=== PATIENT | male | born 1985 | race American Indian/Alaskan Native ===

== ENCOUNTER 2020-01-02 23:23 | Emergency (ER) | payer BC ==
--- NOTE | 2020-01-03 02:07 | XRay Report ---
CHEST 2 VIEWS INDICATION / CLINICAL INFORMATION: cough. FINDINGS: SUPPORT DEVICES: None. HEART / MEDIASTINUM: No significant abnormality. LUNGS / PLEURA: No significant pulmonary or pleural abnormality. No pneumothorax. ADDITIONAL FINDINGS: No significant additional findings. IMPRESSION: 1. No acute findings. Signer Name: Jaxson Cabrera MD Signed: 01/03/2020 2:03 AM Workstation Name: [id number]
[2020-01-03] MEDS ORDERED: ACETAMINOPHEN 500 MG TAB PO ONE (02:20)
[2020-01-03] MEDS ORDERED: predniSONE 20 MG TAB PO ONE (02:20)
[2020-01-03] MEDS ORDERED: IPRATROPIUM/ALBUTEROL SULFATE 3 ML AMPUL.NEB IH ONE (02:20)
--- NOTE | 2020-01-03 03:09 | Emergency Department Report ---
- General Chief Complaint: Upper Respiratory Infection Stated Complaint: COLD SX Source: patient Mode of arrival: Ambulatory Limitations: No Limitations - History of Present Illness Initial Comments: Patient is a 34-year-old -[place] male with a history of heavy tobacco abuse who presents to the ED with complaint of acute onset persistent nasal and sinus congestion, frontal sinus pressure, persistent dry cough with wheezing and shortness of breath and pleuritic chest wall pain for the last 2 days. Patient states that about 6 hours ago he was unable to breathe and therefore decided come to the ED for evaluation. Patient denies dizziness, syncope, fever, chills, sore throat, nausea, vomiting, abdominal pain, neck pain, change in vision or chest pain and back pain. MD Complaint: cough, rhinorrhea, nasal congestion, sinus pain -: Sudden, days(s) (2) Severity: moderate Severity scale (0 -10): 4 Quality: dull Consistency: intermittent Improves With: nothing Worsens With: nothing Associated Symptoms: denies other symptoms, chills, headache, rhinorrhea, nasal congestion, cough, shortness of breath. denies: fever, myalgias, diaphoresis, sore throat, stiff neck, chest pain, abdominal pain, nausea, vomiting, diarrhea, dysuria, rash, confusion, weight loss, epistaxis, hoarseness, ear pain Treatments Prior to Arrival: none - Related Data Previous Rx's Medication Instructions Recorded Last Taken Type Albuterol Sulfate [Proventil Hfa] 1 - 2 puff IH Q6H PRN #1 hfa.aer.ad 01/03/20 Unknown Rx Azithromycin [Zithromax Z-UNRULY] 250 mg PO DAILY #6 tablet 01/03/20 Unknown Rx Benzonatate [Tessalon Perles] 100 mg PO Q8HR #30 capsule 01/03/20 Unknown Rx Ibuprofen [Motrin] 800 mg PO Q8HR PRN #24 tablet 01/03/20 Unknown Rx methylPREDNISolone [Medrol 4MG 4 mg PO DAILY #21 tab.ds.pk 01/03/20 Unknown Rx DOSEPAK (21 tabs)] Allergies Allergy/AdvReac Type Severity Reaction Status Date / Time No Known Allergies Allergy Unverified 01/03/20 01:25 ED Review of Systems ROS: Stated complaint: COLD SX Other details as noted in HPI Constitutional: denies: chills, fever Eyes: denies: eye pain, eye discharge, vision change ENT: congestion. denies: ear pain, throat pain Respiratory: cough, shortness of breath, wheezing Cardiovascular: chest pain (Pleuritic chest wall pain). denies: palpitations Endocrine: no symptoms reported Gastrointestinal: denies: abdominal pain, nausea, vomiting, diarrhea Genitourinary: denies: urgency, dysuria Musculoskeletal: denies: back pain, joint swelling, arthralgia Skin: denies: rash, lesions Neurological: denies: headache, weakness, paresthesias Psychiatric: denies: anxiety, depression Hematological/Lymphatic: denies: easy bleeding, easy bruising ED Past Medical Hx - Past Medical History Previous Medical History?: Yes Additional medical history: Bronchitis - Surgical History Past Surgical History?: No - Social History Smoking Status: Current Every Day Smoker Substance Use Type: None - Medications Home Medications: Home Medications Medication Instructions Recorded Confirmed Last Taken Type Albuterol Sulfate [Proventil Hfa] 1 - 2 puff IH Q6H PRN #1 hfa.aer.ad 01/03/20 Unknown Rx Azithromycin [Zithromax Z-UNRULY] 250 mg PO DAILY #6 tablet 01/03/20 Unknown Rx Benzonatate [Tessalon Perles] 100 mg PO Q8HR #30 capsule 01/03/20 Unknown Rx Ibuprofen [Motrin] 800 mg PO Q8HR PRN #24 tablet 01/03/20 Unknown Rx methylPREDNISolone [Medrol 4MG 4 mg PO DAILY #21 tab.ds.pk 01/03/20 Unknown Rx DOSEPAK (21 tabs)] ED Physical Exam - General Limitations: No Limitations General appearance: alert, in no apparent distress - Head Head exam: Present: atraumatic, normocephalic, normal inspection - Eye Eye exam: Present: normal appearance, PERRL, EOMI Pupils: Present: normal accommodation - ENT ENT exam: Present: normal orophraynx, mucous membranes moist, TM's normal bilaterally, normal external ear exam, other (Grossly congested nasal passages) - Neck Neck exam: Present: normal inspection, full ROM - Respiratory Respiratory exam: Present: normal lung sounds bilaterally, wheezes (Mildly diffuse coarse wheezes throughout). Absent: respiratory distress, rhonchi, chest wall tenderness, accessory muscle use - Cardiovascular Cardiovascular Exam: Present: regular rate, normal rhythm, normal heart sounds. Absent: systolic murmur, diastolic murmur, rubs, gallop - GI/Abdominal GI/Abdominal exam: Present: soft, normal bowel sounds. Absent: tenderness, rebound, hyperactive bowel sounds, organomegaly - Extremities Exam Extremities exam: Present: normal inspection, full ROM, normal capillary refill - Back Exam Back exam: Present: normal inspection, full ROM. Absent: tenderness, CVA tenderness (R), CVA tenderness (L), muscle spasm, vertebral tenderness - Neurological Exam Neurological exam: Present: alert, oriented X3, CN II-XII intact, normal gait, reflexes normal - Psychiatric Psychiatric exam: Present: normal affect, normal mood - Skin Skin exam: Present: warm, dry, intact, normal color. Absent: rash ED Course Vital Signs 01/03/20 01/03/20 00:49 02:29 Temperature 98.3 F Pulse Rate 89 Pulse Rate [ 93 H Anterior Bilateral Throughout] Respiratory 16 Rate Respiratory 17 Rate [Anterior Bilateral Throughout] Blood Pressure 138/80 O2 Sat by Pulse 96 Oximetry ED Medical Decision Making - [place] [address] XRay Report Signed Patient: LISA CANCHOLA MR#: [id number] : 1985 Acct:[id number] Age/Sex: 34 / M ADM Date: 01/02/20 Loc: ED Attending Dr: Ordering Physician: SADIE TALLEY MD Date of Service: 01/03/20 Procedure(s): XR chest routine 2V Accession Number(s): [id number] cc: ED MD GERRI Fluoro Time In Minutes: CHEST 2 VIEWS INDICATION / CLINICAL INFORMATION: cough. FINDINGS: SUPPORT DEVICES: None. HEART / MEDIASTINUM: No significant abnormality. LUNGS / PLEURA: No significant pulmonary or pleural abnormality. No pneumothorax. ADDITIONAL FINDINGS: No significant additional findings. IMPRESSION: 1. No acute findings. Signer Name: Jaxson Cabrera MD Signed: 01/03/2020 2:03 AM Workstation Name: [id number] Transcribed By: CEDRIC Dictated By: Jaxson Cabrera MD Electronically Authenticated By: Jaxson Cabrera MD Signed Date/Time: 01/03/20202 DD/ 1 TD/TT: - Medical Decision Making This is a 34-year-old -[place] male with a history of heavy tobacco abuse who presents to the ED with complaint of acute onset persistent nasal and sinus congestion, frontal sinus pressure, persistent dry cough with wheezing and shortness of breath and pleuritic chest wall pain for the last 2 days. Patient states that about 6 hours ago he was unable to breathe and therefore decided come to the ED for evaluation. In the ED, patient is alert and oriented x3 and is not in distress with normal vital signs. Patient received DuoNeb treatment in the ED and also steroids. Chest x-ray shows no acute cardiopulmonary abnormalities or pneumonitis. On reevaluation, patient's wheezing and shortness of breath resolved, and patient oxygen saturation on room air is 96%. Patient was discharged home on medications and advised to follow-up with his primary care physician in 5 to 7 days for reevaluation. Patient was also counseled on the importance of quitting tobacco smoking habit, which he verbalized understanding. Patient was discharged home and advised to return to the ED immediately if symptoms get worse. - Differential Diagnosis BRONCHITIS; PNEUMONIA; SINUSITIS; URI Critical care attestation.: If time is entered above; I have spent that time in minutes in the direct care of this critically ill patient, excluding procedure time. ED Disposition Clinical Impression: Acute upper respiratory infection, Acute bacterial sinusitis Acute bronchitis Qualifiers: Bronchitis organism: other organism Qualified Code(s): J20.8 - Acute bronchitis due to other specified organisms Disposition: DC-01 TO HOME OR SELFCARE Is pt being admited?: No Does the pt Need Aspirin: No Condition: Stable Instructions: Acute Bronchitis (ED), Upper Respiratory Infection (ED), Acute Bacterial Rhinosinusitis (ED) Additional Instructions: Take medication with food, drink plenty of fluids and follow-up with your primary care physician in 5 to 7 days for reevaluation. Return to the ED immediately if symptoms get worse Prescriptions: methylPREDNISolone [Medrol 4MG DOSEPAK (21 tabs)] 4 mg PO DAILY #21 tab.ds.pk Ibuprofen [Motrin] 800 mg PO Q8HR PRN #24 tablet PRN Reason: Pain , Severe (7-10) Albuterol Sulfate [Proventil Hfa] 1 - 2 puff IH Q6H PRN #1 hfa.aer.ad PRN Reason: Dyspnea Benzonatate [Tessalon Perles] 100 mg PO Q8HR #30 capsule Azithromycin [Zithromax Z-UNRULY] 250 mg PO DAILY #6 tablet Referrals: [facility] [Provider Group] - 3-5 Days Time of Disposition: 03:06 Print Language: GREEK
[2020-01-03 03:26] VITALS: BP 127/82
== END 2020-01-03 03:23 | disposition home or self-care (01) ==
LOC: ED 23:23
DX: J20.8 Acute bronchitis due to other specified organisms (principal); J06.9 Acute upper respiratory infection, unspecified; J01.80 Other acute sinusitis; B96.89 Other specified bacterial agents as the cause of diseases classified elsewhere
CPT/HCPCS: 71046; 94640; 99283; J7512; 94644